=== PATIENT | female | born 1980 | race Caucasian/White ===

== ENCOUNTER 2016-11-24 21:04 | Emergency (ER) | payer BC ==
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
--- NOTE | 2016-11-24 22:48 | ED MAR SUMMARY ---
..... Medication Administration Record [facility] [address] [place], [place] [id number] Patient: BERLIN BROWN Visit ID: [id number] 36y, F Weight: 86.1 kg Height/Length: 65 in BMI: 31.6 ALLERGIES: Codeine, Penicillins
--- NOTE | 2016-11-24 22:48 | ED MAR SUMMARY ---
..... Medication Administration Record [facility] [address] [place], [place] [id number] Patient: BERLIN BROWN Visit ID: [id number] 36y, F Weight: 86.1 kg Height/Length: 65 in BMI: 31.6 ALLERGIES: Codeine, Penicillins
--- NOTE | 2016-11-24 22:48 | ED MED RECONCILIATION SUMMARY ---
Patient: BERLIN BROWN Medication Reconciliation Report [facility] VisitID: [id number] [address] [place] [address] 36y, F Registration Date/Time: 11/24/2016 Weight: 86.1 kg Height/Length: 65 in. BMI: 31.6 ALLERGIES: Codeine, Penicillins The patient's Home Medications are listed below: THE FOLLOWING MEDICATIONS NEED TO BE RECONCILED: Suboxone Sublingual The source(s) of the original Home Medication information: Not obtained. The following Medications were given to the patient in the Emergency Department: None. The following Medications were prescribed to the patient: Naproxen 500 mg tablets: take 1 orally every 12 hours as needed for pain. Dispense twenty (20). No refills. -- Beena Isaac A.R.N.P. Flexeril 10 mg: Take 1 orally every 8 hours as needed for muscle spasm. Dispense twenty (20). No refills. Substitution is permissible. -- Beena Isaac A.R.N.P.
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
--- NOTE | 2016-11-24 22:48 | ED MED RECONCILIATION SUMMARY ---
Patient: BERLIN BROWN Medication Reconciliation Report [facility] VisitID: [id number] [address] [place] [place] [address] 36y, F Registration Date/Time: 11/24/2016 Weight: 86.1 kg Height/Length: 65 in. BMI: 31.6 ALLERGIES: Codeine, Penicillins The patient's Home Medications are listed below: THE FOLLOWING MEDICATIONS NEED TO BE RECONCILED: Suboxone Sublingual The source(s) of the original Home Medication information: Not obtained. The following Medications were given to the patient in the Emergency Department: None. The following Medications were prescribed to the patient: Naproxen 500 mg tablets: take 1 orally every 12 hours as needed for pain. Dispense twenty (20). No refills. -- Beena Isaac A.R.N.P. Flexeril 10 mg: Take 1 orally every 8 hours as needed for muscle spasm. Dispense twenty (20). No refills. Substitution is permissible. -- Beena Isaac A.R.N.P.
== END 2016-11-24 22:20 | disposition home or self-care (01) ==
LOC: ED SRH 21:04
DX: S16.1XXA Strain of muscle, fascia and tendon at neck level, initial encounter (principal); V58.0XXA Driver of pick-up truck or van injured in noncollision transport accident in nontraffic accident, initial encounter; F17.210 Nicotine dependence, cigarettes, uncomplicated; Y93.29 Activity, other involving ice and snow; Y92.410 Unspecified street and highway as the place of occurrence of the external cause; Y99.9 Unspecified external cause status